=== PATIENT | male | born 1975 | race Caucasian/White ===

== ENCOUNTER 2018-09-01 03:39 | Emergency (ER) | payer OTHER, SELFPAY ==
[2018-09-01 03:41] VITALS: BP 136/103; PULSE 88; RESP 16; TEMP 36.7; O2SAT 99; BMI 27.3
--- NOTE | 2018-09-01 03:42 | RAD_ITS ---
STUDY: X-RAY - RIGHT ELBOW REASON FOR EXAM: Male, 42 years old. Fell at work landing on right elbow TECHNIQUE: 3 view(s) of the elbow. COMPARISON: None. FINDINGS: There is an acute femoral neck fracture with intra-articular extension and mild depression. Normal visualized humerus and ulna. Normal radiocapitellar and ulnotrochlear articulations. Anterior elbow fat pad sign consistent with effusion, soft tissue swelling along the radial head. RAD/Elbow min 3 Views IMPRESSION: Radial head fracture with intra-articular extension and depression. Electronically Signed: Susan Barrett MD at 4:04 EST , Service support ,
[2018-09-01] MEDS: Naproxen 500 MG Tablet PO (03:44)
--- NOTE | 2018-09-01 03:46 | ED.VISSUMM ---
- ER Visit Summary Date of Service: 09/01/18 Chief Complaint: Right elbow injury History of Present Illness: The patient is a 42 M who fell at work injuring his right elbow. He believes he hit his elbow on the concrete floor. He is right-hand dominant. Denies paresthesias or weakness in his hand. Physical Examination: Vital signs significant for blood pressure of 136/103, otherwise unremarked. Patient sitting upright in bed no acute distress. Head neck examination reveals no sign of trauma. Heart is regular rate and rhythm. Right upper extremity examination reveals tenderness throughout the right elbow, worsening of the radial head. No significant edema or deformity noted. He does have increased pain with attempts to flex, extend, pronate, or supinate. He has strong hand grasp distally. He has normal pulses. There is no tenderness at the shoulder or wrist. Test Results: Right elbow x-rays reveal a radial head fracture with intra-articular extension and depression. Emergency Department Course and Treatment: Patient is given naproxen here. Ortho-Glass splint, posterior plus sugar tong, is placed. Following splint application patient has good cap refill distally and can wiggle fingers. He will be given a prescription for naproxen and Percocet. He will be referred to Dr. Zamora, on-call for orthopedics. He will also follow-up with [facility]. Treatment Plan: [] Disposition: Discharge Impression: 1. Mechanical fall 2. Right radial head fracture This note was generated with [employer] dictation software. It may contain incorrect words, spelling, and punctuation that were not noted in review of the chart prior to signing ED Disposition - Plan for ED Patient: Disposition: Home or Assisted Living Chief Complaint: Upper Extremity Injury Instructions: ED Fx Radial Head Prescriptions: Oxycodone HCl/Acetaminophen [Percocet 5/325] 1 tablet PO Q6H PRN PRN 5 Days #20 tablet PRN Reason: Pain Naproxen [Naprosyn] 500 mg PO BID PRN PRN #20 tablet PRN Reason: Pain Referrals: Walt Zamora MD [STAFF PHYSICIAN] - 5-7 Days [facility] [[facility]YSICIANS] - 2 Days
--- NOTE | 2018-09-01 04:12 | ED.DEP ---
ED Disposition - Plan for ED Patient: Disposition: Home or Assisted Living Chief Complaint: Upper Extremity Injury Instructions: ED Fx Radial Head Prescriptions: Oxycodone HCl/Acetaminophen [Percocet 5/325] 1 tablet PO Q6H PRN PRN 5 Days #20 tablet PRN Reason: Pain Naproxen [Naprosyn] 500 mg PO BID PRN PRN #20 tablet PRN Reason: Pain Referrals: [facility] [[facility] PHYSICIANS] - 2 Days Walt Zamora MD [STAFF PHYSICIAN] - 5-7 Days
[2018-09-01] MEDS: oxyCODONE 5 MG Tablet PO (04:21)
[2018-09-01 04:24] VITALS: RESP 14
== END 2018-09-01 04:35 | disposition home or self-care (01) ==
PROVIDERS: Emergency Provider Emergency Medicine; Family Provider Student in an Organized Health Care Education/Training Program; PCP Student in an Organized Health Care Education/Training Program
DX: S52.121A Displaced fracture of head of right radius, initial encounter for closed fracture (principal); W19.XXXA Unspecified fall, initial encounter; Y93.9 Activity, unspecified; Y92.89 Other specified places as the place of occurrence of the external cause; Y99.0 Civilian activity done for income or pay
CPT/HCPCS: 29105; 73080; 99283

== ENCOUNTER 2018-10-27 08:00 | Outpatient (RCR) | payer OTHER, SELFPAY ==
--- NOTE | 2018-10-06 10:35 | HP.OTEVAL ---
Patient's Visit Information REJI LOVE is a 43 year old M, referred to Occupational Therapy by SRINI Gomez, with a diagnosis of Closed displaced fx of head of R radius. Date of Evaluation: 10/04/18 Occupational Therapist: Breanna Alvarez - Subjective Subjective: Arrived and noted that original injury 09/01/18. He noted splint d/c'd last week and has been working light duty since at [employer]. At regular FT job he is required to lift 50-75 lbs. Explained that as per doctor orders he is to put sling back on if getting too sore but he notes it has not gotten to that point. Additionally, explained that callus is starting to form but no completely formed and fracture is still healing. He is R hand dominant. manager crisis Michelle E- [phone] ext [phone] - Pain Right Elbow 0 Pain Intensity Range: 0, 4, 5 - Objective Objective/Observation: Decreased ability to complete full extension of R elbow; decreased strength. 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 Increase grimance observed. 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 Goal:: Reji to be able to obtain neutral position with R elbow as well as increased flexion by 10 degrees of R elbow to promote increased ROM needed to complete ADL and work related tasks 100% of the time by d/c. Goal:: Reji to have no more than 1/10 painw ith repetitive movements 4/5 trials 80% of the time to promote increased ability to returnt o PLOF for work related tasks by d/c. Goal:: Reji to be (i) to complete proper body mechanics for lifting tasks to minimize compensations with R UE to promote increased ROM and strength needed to return to PLOF by d/c. Goal:: Reji to be (I) to complete HEP for ROM and PRE as needed to promote increased stability and bone integrity 80% of the time by d/c. Goal:: Reji to be able to complete lifting of at least 50 lbs with no compensations and good body mechanics to promote ability to return to PLOF and all work related tasks by d/c. - Rehabilitation General Assessment: Reji arrived for OT evaluation on this date of 10/04/18. Decrease ROM and strength noted. He exhibits increased need for skilled OT treatment to promote increased stability of bones, PRE strengthening and ROM to promote returning to PLOF for ADL/IADls by d/c. Rehabilitation Potential: Good - Anticipated Interventions Anticipated Interventions: Early Active Motion, A/AAROM/PROM, Strengthening, Edema Control, Scar Care, Modalities, Joint Protection/Energy Conservation, Ergonomic Education, Fine Motor Coord/Iglesia, ADL Training, Caregiver Training, Home Program - Visit Plan Frequency: 2-3x /Week Duration: 4-6 Weeks General Plan: Reji to complete OT to promote ROM, decrease stiffnes and manage pain with use of modalities as needed, PRE strengthening program, and promote his ability to retrunt o PLOF with R donimant UE for self care and work related tasks by d/c. TEXT: Thank you for the opportunity to evaluate your patient. For Medicare and Medicare HMO plans, please review the plan of care and approve it. It will need to be FAXED BACK to us at [phone] for Medicare purposes. Please let me know if there are questions or concerns regarding this plan of care. Physician Signature: Date:
--- NOTE | 2019-04-18 17:34 | HP.OT.NRP ---
HP - Discharge Summary - Patient Information IRINA LOVE was seen in my office for initial evaluation on 10/04/18. The following Plan of Care was established for this patient: Initial Frequency: 2-3x /Week Initial Duration: 4-6 Weeks Plan: cont POC - Anticipated Interventions Anticipated Interventions: Early Active Motion, A/AAROM/PROM, Strengthening, Edema Control, Scar Care, Modalities, Joint Protection/Energy Conservation, Ergonomic Education, Fine Motor Coord/Iglesia, ADL Training, Caregiver Training, Home Program This patient was last seen in our office 10/27/18. Pertinent comments regarding their Occupational therapy will appear below: Pt. noted that he did not need continued therapy and was following up with doctor. He did not return to therapy and will be d/c'd at this time. Seen for 5 visits. only. At this point I will be discontinuing this patient from occupational therapy. I would be happy to see this patient again in the future if found appropriate by the physician. Thank you! Breanna Alvarez, OTR/L
== END 2018-10-27 19:00 | disposition home or self-care (01) ==
LOC: OT 08:00
PROVIDERS: Family Provider Student in an Organized Health Care Education/Training Program; PCP Student in an Organized Health Care Education/Training Program; Visit Provider Physician Assistant Surgical
DX: S52.121D Displaced fracture of head of right radius, subsequent encounter for closed fracture with routine healing (principal)
CPT/HCPCS: 97035; 97110; 97140; 97166; 97530

== ENCOUNTER 2019-06-14 02:01 | Emergency (ER) | payer OTHER, SELFPAY ==
[2019-06-14 02:03] VITALS: BP 150/97; PULSE 84; RESP 18; TEMP 36.7; O2SAT 97; BMI 26.7
--- NOTE | 2019-06-14 02:03 | ED.RN ---
CALLED [facility] TO DRUG TEST PER ARTIFLEX REQUEST
--- NOTE | 2019-06-14 02:19 | ED.VIS.GEN ---
History of Present Illness Chief Complaint: Trauma Informant: Patient Narrative: Patient stated he accidentally got struck in the nose with an object at work. He had a bloody nose on the left side. Comes in for further evaluation. He did not strike the upper portion of his nose. It struck the lower portion. He did not get knocked out. Happened just prior to arrival. Current severity is mild. The bleeding is almost completely stopped. - Past Medical History (1) Cervical radiculopathy Status: Acute (2) Palpitations Status: Acute Past Medical History - Allergies and Home Meds Allergies/Adverse Reactions: Allergies hydrocodone bitartrate [From Vicodin] Allergy (Verified 06/14/19 02:02) Rash Primary Care Physician: KELL CASTORENA [GROUP OF PHYSICIANS] - Prior records reviewed: Yes Past Medical History: - - See problem list Surgical History: noncontributory Smoking Status: Current every day smoker Alcohol: None Drugs: None Review of Systems General: Denies: Chills, Fever, Sweats Eyes: Denies: Visual changes - bilaterally, Diplopia ENT: Reports: - - See HPI. Denies: Rhinorrhea, Sore throat Cardiovascular: Denies: Chest pain, Palpitations Respiratory: Denies: Dyspnea, Cough, Dyspnea on exertion Gastrointestinal: Denies: Abdominal pain, Nausea, Vomiting, Diarrhea, Melena, Hematochezia Genitourinary: Denies: Dysuria, Hematuria, Frequency Musculoskeletal: Denies: Back pain, Extremity Pain Skin: Denies: Rash, Wounds Neurological: Denies: Headache, Weakness, Numbness Physical Exam Vital Signs/Narrative: Vital Signs Temp Pulse Resp BP Pulse Ox 06/14/19 02:03 98.1 F 84 18 150/97 H 97 General: Well nourished, Well developed, No Acute Distress Head: Normocephalic, Atraumatic Eyes: Perrl, EOMI ENT: Moist mucous membranes, - - Mild bloody nose on the left side is almost completely stopped. No septal hematoma. Nasal bones are midline and nontender. No significant deformity noted. Negative for: No rhinorrhea Neck: Supple, Nontender Cardiovascular: Regular rate, Regular rhythm, No murmurs Respiratory: No distress, CTA bilaterally, Chest nontender Abdomen: Soft, Nontender, Nondistended, Normal bowel sounds Back: Nontender, Normal Inspection Extremities: Nontender, No edema Skin: Normal color, No rash Neurological: Alert, Oriented x3, Cranial nerves II-XII grossly intact, Normal Strength, Normal Sensation Psychological: Normal affect, Normal Mood Diagnostic/Tx/Re-eval - Medical Decision Making Tissue paper was inserted into the left nares as well as pressure was held with a clip for 20 minutes with resolution of bleeding. At this time I feel he just has a traumatic nosebleed. I do not feel he has a nasal fracture. He will follow-up as an outpatient with [facility] ED Disposition - Plan for ED Patient: Disposition: Home or Assisted Living Diagnosis: Epistaxis due to trauma Instructions: Nosebleed Referrals: KELL,KELL [GROUP OF PHYSICIANS] -
[2019-06-14 03:18] VITALS: BP 123/96; PULSE 65; O2SAT 98
== END 2019-06-14 03:20 | disposition home or self-care (01) ==
PROVIDERS: Emergency Provider Emergency Medicine; Family Provider Student in an Organized Health Care Education/Training Program; PCP Student in an Organized Health Care Education/Training Program
DX: R04.0 Epistaxis (principal); F17.200 Nicotine dependence, unspecified, uncomplicated; Z88.5 Allergy status to narcotic agent
CPT/HCPCS: 99282

== ENCOUNTER 2020-03-09 14:20 | Emergency (ER) | payer OTHER, SELFPAY ==
[2020-03-09 14:21] VITALS: BP 150/102; PULSE 108; RESP 18; TEMP 37.2; O2SAT 97; BMI 26.9
--- NOTE | 2020-03-09 14:33 | ED.DCSUM_ITS ---
History of Present Illness Chief Complaint: Neuro S/Sx Informant: Patient Onset: Yesterday Context: Gradual Onset Timing: Continuous Current Severity: Moderate Maximum Severity: Moderate Narrative: The patient is an otherwise healthy 44-year-old male that presents to the emergency department with facial droop. Patient states last night, he noticed that his right eye seemed a little irritated. He states it was hard to close. Today, he went shopping. He noticed that he was having a difficult time smiling and had some slurred speech. He denies headache, visual change, or weakness. He is otherwise been within his normal state of health. He denies fevers or chills. Prior similar symptoms: No Recent Illness/Hospitalization: No Past Medical History - Allergies and Home Meds Allergies/Adverse Reactions: Allergies hydrocodone bitartrate [From Vicodin] Allergy (Verified 03/09/20 14:24) Rash Primary Care Physician: Ke Green DO [Primary Care Provider] - Prior records reviewed: Yes Past Medical History: None Surgical History: noncontributory Smoking Status: Current every day smoker Review of Systems General: Denies: Chills, Fever, Sweats Eyes: Denies: Visual changes - bilaterally, Diplopia ENT: Denies: Rhinorrhea, Sore throat Cardiovascular: Denies: Chest pain, Palpitations Respiratory: Denies: Dyspnea, Cough, Dyspnea on exertion Gastrointestinal: Denies: Abdominal pain, Nausea, Vomiting, Diarrhea, Melena, Hematochezia Genitourinary: Denies: Dysuria, Hematuria, Frequency Musculoskeletal: Denies: Back pain, Extremity Pain Skin: Denies: Rash, Wounds Neurological: Reports: Numbness. Denies: Headache, Weakness Physical Exam Vital Signs/Narrative: Vital Signs Temp Pulse Resp BP Pulse Ox 03/09/20 14:21 99.0 F 108 H 18 150/102 H 97 Inital Vital Signs reviewed: Yes General: Well nourished, Well developed, No Acute Distress Head: Normocephalic, Atraumatic Eyes: Perrl, EOMI ENT: Moist mucous membranes, No rhinorrhea Neck: Supple, Nontender Cardiovascular: Regular rate, Regular rhythm, No murmurs Respiratory: No distress, CTA bilaterally, Chest nontender Abdomen: Soft, Nontender, Nondistended, Normal bowel sounds Back: Nontender, Normal Inspection Extremities: Nontender, No edema Skin: Normal color, No rash Neurological: Alert, Oriented x3, Normal Strength, Normal Sensation, Right side facial droop Psychological: Normal affect, Normal Mood Diagnostic/Tx/Re-eval - Medical Decision Making The patient has right-sided facial droop. He is unable to close his right eye. There is not forehead sparing. There is no lesions in the nose or in the ear. Based on his presentation and lack of other symptoms, I do feel this represents a Car's palsy. I do not feel that imaging would be of any help at this time. I am going to treat the patient with Lacri-Lube, valacyclovir, and prednisone. He was counseled on the importance of keeping his eye lubricated and taping it. He will be discharged home. Impression 1. Car's palsy ED Disposition - Plan for ED Patient: Instructions: ED [place] Palsy Prescriptions: Prednisone [Deltasone] 60 mg PO DAILY #15 tab Prescription Printed Petrolatum,White [Lacrilube] 1 applic RIGHT EYE TID #1 tube Prescription Printed Valacyclovir HCl [Valacyclovir] 1,000 mg PO Q8 #21 tab Prescription Printed Referrals: Ke Green DO [Primary Care Provider] -
[2020-03-09] MEDS: Petrolatum,White 3.75GM OPTH.TUBE 1 APPLIC OPHTHALMIC (14:58)
[2020-03-09 15:01] VITALS: BMI 26.9
[2020-03-09 15:06] LABS: Bedside Glucose 90 mg/dL (70-110)
== END 2020-03-09 15:03 | disposition home or self-care (01) ==
PROVIDERS: Emergency Provider Emergency Medicine; PCP Student in an Organized Health Care Education/Training Program
DX: G51.0 Bell's palsy (principal); F17.200 Nicotine dependence, unspecified, uncomplicated; Z88.5 Allergy status to narcotic agent
CPT/HCPCS: 82962; 99283